=== PATIENT | female | born 1990 | race Caucasian/White ===

== ENCOUNTER 2016-11-07 04:02 | Inpatient (IN) | payer OTHER ==
[2016-11-07] MEDS ORDERED: Sodium Chloride 0.9% 1,000 ML IV ONE ×2 (04:18→04:19)
[2016-11-07 04:30] LABS: BASO # 0.1 K/uL (0.0-0.2); BASO % 1.3 % (0.0-2.0); EOS # 0.1 K/uL (0.0-0.7); EOS % 1.8 % (0.0-4.0); HEMATOCRIT 38.9 % (34.0-47.0); LYMPH # 1.4 K/uL (1.0-4.3); LYMPH % 23.8 % (20.0-40.0); MEAN CORPUSCULAR HEMOGLOBIN 29.3 pg (27.0-31.0); MEAN PLATELET VOLUME 7.1 fL (7.2-11.7); MONO # 0.2 K/uL (0.0-0.8); MONO % 4.1 % (0.0-10.0); RED CELL DISTRIBUTION WIDTH 14.6 % (11.5-14.5); WHITE BLOOD COUNT 5.7 K/uL (4.8-10.8)
[2016-11-07 04:33] LABS: MEAN CELL VOLUME 94.5 fL (81.0-99.0)
[2016-11-07 04:35] LABS: CHLORIDE 103 mmol/L (98-107)
[2016-11-07] MEDS ORDERED: Sodium Chloride 0.9% 2,000 ML ONE (04:35)
[2016-11-07 04:36] LABS: POTASSIUM 3.4 mmol/L (3.6-5.2); SODIUM 138 mmol/L (132-148)
[2016-11-07 04:38] LABS: ALB/GLOB RATIO 1.3 (1.0-2.1); ALKALINE PHOSPHATASE 145 U/L (38-126); AST/SGOT 63 U/L (14-36); BILIRUBIN,TOTAL 0.7 mg/dL (0.2-1.3); BLOOD UREA NITROGEN 9 mg/dL (7-17); GFR AFRICAN-AMERICAN > 60; TOTAL PROTEIN 7.1 g/dL (6.3-8.3)
[2016-11-07 04:39] LABS: ALT/SGPT 72 U/L (9-52)
[2016-11-07 04:40] LABS: CARBON DIOXIDE 7 mmol/L (22-30)
[2016-11-07 04:43] LABS: GLUCOSE,RANDOM 458 mg/dL (65-105)
[2016-11-07 04:49] LABS: VENOUS BLOOD GAS BASE EXCESS -18.2 mmol/L (0.0-2.0); VENOUS BLOOD GAS PCO2 21 mmHg (40-60); VENOUS BLOOD PH 7.19 (7.32-7.43)
[2016-11-07] MEDS ORDERED: Insulin Human Regular 100 UNIT in Sodium Chloride 0.9% 99 ML IV SCH ×2 (05:30→10:30)
[2016-11-07] MEDS ORDERED: Potassium Chloride 20 MEQ in Dextrose 5%/0.45% NS 1,000 ML IV SCH (06:30)
--- NOTE | 2016-11-07 06:43 | C.PDOC ---
History Of Present Illness Patient is a 26 year old female who presents to the ER with a complaint of an elevated blood sugar level. Patient was out today and noticed her sugar was over 500; she took 20 units of her humalog at the time but sugar was still high. Patient tried 5 more units subcutaneously. Patient reports currently feeling tired and weak. Denies nausea, vomiting, fever, cough or abdominal pain. Chief Complaint (Nursing): High Blood Sugar History Per: Patient History/Exam Limitations: no limitations Onset/Duration Of Symptoms: Hrs Current Symptoms Are (Timing): Still Present Current Diabetic Medications: Other (Humalog) Associated Infectious Symptoms: Other (Weakness). denies: Cough, Nausea, Vomiting Treatment Prior To Provider Evaluation: Other (Humalog) Response To Treatment: No Response Recent travel outside of the [place]: No Past Medical History Reviewed: Historical Data, Nursing Documentation, Vital Signs Vital Signs: Last Vital Signs Temp 97.6 F 11/07/16 04:05 Pulse 107 H 11/07/16 06:25 Resp 15 11/07/16 06:25 BP 118/78 11/07/16 06:25 Pulse Ox 100 11/07/16 06:51 - Medical History PMH: Diabetes (Type 1) Surgical History: Family History: States: Unknown Family Hx - Social History Hx Tobacco Use: Yes Hx Alcohol Use: Yes Hx Substance Use: No - Immunization History Hx Tetanus Toxoid Vaccination: Yes Hx Influenza Vaccination: No Hx Pneumococcal Vaccination: No Review Of Systems Constitutional: Positive for: Weakness, Other (Lethargic). Negative for: Fever Cardiovascular: Positive for: Chest Pain. Negative for: Palpitations Respiratory: Negative for: Cough, Shortness of Breath Gastrointestinal: Negative for: Nausea, Vomiting, Abdominal Pain Genitourinary: Negative for: Dysuria, Incontinence Neurological: Negative for: Numbness, Dizziness Physical Exam - Physical Exam Appears: Non-toxic, No Acute Distress Skin: Normal Color, Warm, Dry Head: Atraumatic, Normacephalic Oral Mucosa: Moist Chest: Symmetrical, No Tenderness Cardiovascular: Rhythm Regular, No Murmur Respiratory: Normal Breath Sounds, No Rales, No Rhonchi, No Wheezing Gastrointestinal/Abdominal: Soft, No Tenderness Neurological/Psych: Oriented x3, Normal Speech, Normal Cognition ED Course And Treatment - Laboratory Results Result Diagrams: 11/07/16 06:42 11/07/16 04:25 O2 Sat by Pulse Oximetry: 100 Progress Note: Pepcid, IV fluids, zofran and potassium administered. Discussed case with software test developer who agreed to admit patient to ICU. Critical Care Time - Critical Care Note Total Time (in mins): 30 Documented critical care: time excludes all time spent performing seperately billable procedures. Disposition - Disposition Disposition Time: 18:10 Condition: GUARDED - Clinical Impression Clinical Impression: DKA (diabetic ketoacidoses) - Scribe Statement The provider has reviewed the documentation as recorded by the Scribnatanael Pacheco All medical record entries made by the Scribe were at my direction and personally dictated by me. I have reviewed the chart and agree that the record accurately reflects my personal performance of the history, physical exam, medical decision making, and the department course for this patient. I have also personally directed, reviewed, and agree with the discharge instructions and disposition.
[2016-11-07 06:45] LABS: HEMATOCRIT 32.7 % (34.0-47.0); MEAN CELL VOLUME 92.1 fL (81.0-99.0); MEAN CORPUSCULAR HEMOGLOBIN 29.4 pg (27.0-31.0); MEAN CORPUSCULAR HGB CONC 31.9 g/dL (33.0-37.0); MEAN PLATELET VOLUME 7.1 fL (7.2-11.7); RED CELL DISTRIBUTION WIDTH 14.7 % (11.5-14.5); WHITE BLOOD COUNT 6.6 K/uL (4.8-10.8)
[2016-11-07 06:55] LABS: VENOUS BLOOD GAS BASE EXCESS -13.2 mmol/L (0.0-2.0); VENOUS BLOOD GAS PCO2 24 mmHg (40-60); VENOUS BLOOD PH 7.29 (7.32-7.43)
[2016-11-07 06:57] LABS: CHLORIDE 109 mmol/L (98-107); SODIUM 138 mmol/L (132-148)
[2016-11-07 06:58] LABS: POTASSIUM 3.7 mmol/L (3.6-5.2)
[2016-11-07 06:59] LABS: GFR AFRICAN-AMERICAN > 60
[2016-11-07 07:00] LABS: ALB/GLOB RATIO 1.2 (1.0-2.1); ALKALINE PHOSPHATASE 104 U/L (38-126); ALT/SGPT 52 U/L (9-52); AST/SGOT 43 U/L (14-36); BILIRUBIN,TOTAL 0.5 mg/dL (0.2-1.3); BLOOD UREA NITROGEN 7 mg/dL (7-17); GLUCOSE,RANDOM 82 mg/dL (65-105); PHOSPHOROUS 2.3 mg/dL (2.5-4.5); TOTAL PROTEIN 5.6 g/dL (6.3-8.3)
[2016-11-07 07:01] LABS: ALCOHOL SERUM < 10 mg/dl (0-10); CALCIUM 7.7 mg/dl (8.6-10.4); MAGNESIUM 1.4 mg/dL (1.6-2.3)
[2016-11-07 07:06] LABS: CARBON DIOXIDE 10 mmol/L (22-30)
[2016-11-07 08:01] LABS: URINE BACTERIA RARE (<OCC); URINE BILIRUBIN NEGATIVE (NEGATIVE); URINE BLOOD NEGATIVE (NEGATIVE); URINE COLOR Straw (YELLOW); URINE GLUCOSE (UA) 3+ mg/dL (Normal); URINE KETONE 2+ mg/dL (NEGATIVE); URINE LEUKOCYTE ESTERASE NEG Leu/uL (Negative); URINE PROTEIN NEGATIVE (NEGATIVE); URINE UROBILINOGEN NORMAL mg/dL (0.2-1.0); WBC URINE 1 /hpf (0-5)
[2016-11-07 08:10] LABS: RBC URINE 8 /hpf (0-3)
--- NOTE | 2016-11-07 08:15 | CP.PCM.CON ---
History of Present Illness - History of Present Illness History of Present Illness: 26 F with h/o IDDM since age 3 yr as per the patient currently only taking humlog 15 units tidac, no long acting insulin mentions has never needed and does not have episodes of the DKA over many years. As per the patient she was fine till last night around 10:30 pm took 15 units of humlog after food, patient then went for alcohol drinks with friends around 1am and vomited the first drink she got only half finished. She didn't felt good and noticed her glucose was in 500s hence she took second dose of humlog 20units at about 2:30 am and felt to come to ER for sugar control. In ER patient was found to be in anion gap acidosis with hyperglycemia and stared on insulin drip for DKA. Patient at the time of eval was not tachypnic and in no distress well makeup and dressed for republican. Prior records form including jun 2016, she was in [place] [facility] for DKA and hemoglobin A1c 9.9 suggesting poor control of glucose which will go in accordance to not being on basal insulin. Patient's labs rechecked including VBG lactate, still AG present, HCO3 of 10, but glucose was 98mg/dl, lactate was 5.9. Patient c/o some cough mentions daughter was sick, was taking amoxicillin for last 2 days PMH as above PSH 2 c sections Allergies NKDA Med reviewed Family history no dm runs in family Social about 10 cig/day, rarely alcohol, denies illicit drug use LMP 2 months ago, UPG negative 1.5months back as per patient. Review of Systems - Review of Systems All systems: reviewed and no additional remarkable complaints except (HPI) Past Patient History - Infectious Disease Hx of Infectious Diseases: None - Past Medical History & Family History Past Medical History?: Yes - Past Social History Smoking Status: Light Smoker < 10 Cigarettes Daily Alcohol: Occasional Drugs: Denies Home Situation {Lives}: With Family - CARDIAC Hx Cardiac Disorders: No - PULMONARY Hx Respiratory Disorders: No - NEUROLOGICAL Hx Neurological Disorder: No - HEENT Hx HEENT Problems: No - RENAL Hx Chronic Kidney Disease: No - ENDOCRINE/METABOLIC Hx Endocrine Disorders: Yes Hx Diabetes Mellitus Type 1: Yes - HEMATOLOGICAL/ONCOLOGICAL Hx Blood Disorders: No - INTEGUMENTARY Hx Dermatological Problems: No - MUSCULOSKELETAL/RHEUMATOLOGICAL Hx Musculoskeletal Disorders: No - GASTROINTESTINAL Hx Gastrointestinal Disorders: No - GENITOURINARY/GYNECOLOGICAL Hx Genitourinary Disorders: No - PSYCHIATRIC Hx Substance Use: No - SURGICAL HISTORY Hx Surgeries: Yes Hx Section: Yes (x2) Other/Comment: rt thigh abcess I&D (2006) / insulin pump - ANESTHESIA Hx Anesthesia: Yes Hx Anesthesia Reactions: No Meds Allergies/Adverse Reactions: Allergies Allergy/AdvReac Type Severity Reaction Status Date / Time No Known Allergies Allergy Verified 11/07/16 04:11 - Medications Medications: Current Medications Insulin Human Regular 100 unit (/ Sodium Chloride) 100 mls @ 2 mls/hr IV .Q24H [facility] Last Admin: 11/07/16 05:48 Dose: 2 mls/hr Potassium Chloride 20 meq/ (Dextrose/Sodium Chloride) 1,010 mls @ 125 mls/hr IV .Q8H5M [facility] Last Admin: 11/07/16 07:08 Dose: 125 mls/hr Magnesium Sulfate/Dextrose (Magnesium Sulfate 1 Gm/100 Ml D5w) 1 gm in 100 mls @ 200 mls/hr IVPB Q30M [facility] Stop: 11/07/16 08:14 Physical Exam - Additional Findings Additional findings: * HEENT CA, mild erythema in the throat * Neck supple * CVS regular, no gallop or rub * PA soft, nt bs present * Ext no edema * Skin normal turgor * 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 Results - Vital Signs Recent Vital Signs: Last Vital Signs Temp 97.6 F 11/07/16 04:05 Pulse 107 H 11/07/16 06:25 Resp 15 11/07/16 06:25 BP 118/78 11/07/16 06:25 Pulse Ox 100 11/07/16 06:57 - Labs Result Diagrams: 11/07/16 06:42 11/07/16 06:43 Labs: Laboratory Results - last 24 hr 11/07/16 11/07/16 11/07/16 06:15 06:42 06:43 WBC 6.6 RBC 3.55 L Hgb 10.5 L Hct 32.7 L MCV 92.1 D MCH 29.4 MCHC 31.9 L RDW 14.7 H Plt Count 345 MPV 7.1 L pO2 VBG pH VBG pCO2 VBG HCO3 VBG Total CO2 VBG O2 Sat (Calc) VBG Base Excess VBG Potassium Glucose Lactate Crit Value Called To Crit Value Called By Crit Value Read Back Blood Gas Notified Time Sodium 138 Potassium 3.7 Chloride 109 H Carbon Dioxide 10 L* D Anion Gap 23 H BUN 7 Creatinine 0.5 L Est GFR ( Amer) > 60 Est GFR (Non-Af Amer) > 60 POC Glucose (mg/dL) 98 Random Glucose 82 Calcium 7.7 L Phosphorus 2.3 L Magnesium 1.4 L Total Bilirubin 0.5 AST 43 H D ALT 52 D Alkaline Phosphatase 104 Total Protein 5.6 L Albumin 3.1 L D Globulin 2.5 Albumin/Globulin Ratio 1.2 Venous Blood Potassium Alcohol, Quantitative < 10 11/07/16 06:51 WBC RBC Hgb Hct MCV MCH MCHC RDW Plt Count MPV pO2 46 VBG pH 7.29 L VBG pCO2 24 L VBG HCO3 14.0 VBG Total CO2 12.2 L VBG O2 Sat (Calc) 85.6 H VBG Base Excess -13.2 L VBG Potassium 3.7 Glucose 69 Lactate 5.9 H* Crit Value Called To Shola rn Crit Value Called By Sarah premises technician Crit Value Read Back Y Blood Gas Notified Time 655 Sodium 138.0 Potassium Chloride 113.0 H Carbon Dioxide Anion Gap BUN Creatinine Est GFR ( Amer) Est GFR (Non-Af Amer) POC Glucose (mg/dL) Random Glucose Calcium Phosphorus Magnesium Total Bilirubin AST ALT Alkaline Phosphatase Total Protein Albumin Globulin Albumin/Globulin Ratio Venous Blood Potassium 3.7 Alcohol, Quantitative Assessment & Plan - Assessment and Plan (Free Text) Assessment: * DKA and Lactic acidosis, later unclear source * Probably no compliance with type 1 dm treatment as patient is not on basal long acting insulin, in which case very difficult to manage type 1 dm * Tobacco abuse * Mild pharyngitis Plan: * Abd pelvis ct, to look for any source suspicious of lactic acidosis * UDS * Continue insulin drip with dextrose till AG clears * Supplement electrolytes * Patient will be counselled about DM care * See orders for detail
[2016-11-07] MEDS ORDERED: Iohexol 240 (50 ml) ONE (08:19)
[2016-11-07] MEDS: Magnesium Sulfate 1 gm in D5W 1 GM/100 ML BAG IVPB SCH ×2 (08:41→09:24)
[2016-11-07] MEDS ORDERED: Magnesium Sulfate 1 gm in D5W 2 GM/200 ML BAG IVPB ONE (08:42)
[2016-11-07] MEDS: Insulin Human Regular 100 UNIT in Sodium Chloride 0.9% 99 ML IV SCH ×3 (08:58→11:10)
[2016-11-07 09:53] LABS: CHLORIDE 106 mmol/L (98-107); POTASSIUM 3.9 mmol/L (3.6-5.2); SODIUM 135 mmol/L (132-148)
[2016-11-07 09:56] LABS: CARBON DIOXIDE 15 mmol/L (22-30); GFR AFRICAN-AMERICAN > 60
[2016-11-07 09:57] LABS: BLOOD UREA NITROGEN 6 mg/dL (7-17); CALCIUM 7.9 mg/dl (8.6-10.4); GLUCOSE,RANDOM 145 mg/dL (65-105)
--- NOTE | 2016-11-07 10:05 | US ---
HISTORY: transaminitis COMPARISON: None. TECHNIQUE: Grayscale imaging was performed. FINDINGS: LIVER: Measures 23.0 cm in length. Normal echogenicity of the liver parenchyma. No mass. No intrahepatic bile duct dilatation. GALLBLADDER: No gallstones, wall thickening or pericholecystic fluid. COMMON BILE DUCT: Measures 3.0 mm. No stones. No dilatation. PANCREAS: There is an apparent diffuse atrophy of the pancreas. No mass. No ductal dilatation. RIGHT KIDNEY: Measures 10.8 cm in length. Normal echogenicity. No calculus, mass, or hydronephrosis. AORTA: No aneurysmal dilatation. IVC: Unremarkable. OTHER FINDINGS: None . IMPRESSION: Hepatomegaly. No cholelithiasis or biliary dilatation.
[2016-11-07] MEDS ORDERED: Iodixanol 320 MG/ML 100 ML BOTTLE IV ONE (10:16)
[2016-11-07 10:33] VITALS: TEMP 98
--- NOTE | 2016-11-07 11:01 | RAD ---
HISTORY: Cough, DKA COMPARISON: No prior. TECHNIQUE: Chest PA and lateral FINDINGS: LUNGS: The lungs are well inflated and clear. PLEURA: No significant pleural effusion identified. No pneumothorax apparent. CARDIOVASCULAR: Normal. OSSEOUS STRUCTURES: No significant abnormalities. VISUALIZED UPPER ABDOMEN: Normal. OTHER FINDINGS: None. IMPRESSION: No active pulmonary disease.
--- NOTE | 2016-11-07 11:40 | CT ---
PROCEDURE: CT Abdomen and Pelvis with contrast HISTORY: transaminitis, lactic acidosis COMPARISON: None. TECHNIQUE: CT scan of the abdomen and pelvis was performed after intravenous administration of contrast. Oral contrast was administered. Coronal and sagittal reformatted images were obtained. Radiation dose: Total exam DLP = 225.32 mGy-cm. This CT exam was performed using one or more of the following dose reduction techniques: Automated exposure control, adjustment of the mA and/or kV according to patient size, and/or use of iterative reconstruction technique. FINDINGS: LOWER THORAX: The lung bases are clear. LIVER: The liver is markedly enlarged and measures 23 cm in craniocaudad dimension. There is homogeneous enhancement. No gross lesion or ductal dilatation. GALLBLADDER AND BILE DUCTS: There are no calcified gallstones. PANCREAS: The pancreas is normal in size and there is homogeneous enhancement without focal mass or ductal dilatation. SPLEEN: The spleen is normal in size and there is homogeneous enhancement without focal lesion. ADRENALS: Both adrenal glands are normal in size without discrete nodule. KIDNEYS AND URETERS: Both kidneys are normal in size and there is homogeneous enhancement without hydronephrosis or focal mass. VASCULATURE: Normal in appearance. No aortic aneurysm. BOWEL: The small bowel loops are normal in caliber. The colon is unremarkable. No evidence of bowel dilatation, wall thickening or obstruction. APPENDIX: Normal appendix. PERITONEUM: No free fluid. No free air. LYMPH NODES: No enlarged lymph nodes. BLADDER: Decompressed. REPRODUCTIVE: Unremarkable. BONES: No acute fracture. Within normal limits for the patient's age. OTHER FINDINGS: None. IMPRESSION: 1. Severe hepatomegaly. 2. No other acute abdominal or pelvic abnormality.
[2016-11-07 13:53] LABS: CHLORIDE 105 mmol/L (98-107); SODIUM 136 mmol/L (132-148)
[2016-11-07 13:54] LABS: POTASSIUM 3.4 mmol/L (3.6-5.2)
[2016-11-07 13:56] LABS: GFR AFRICAN-AMERICAN > 60
[2016-11-07 13:57] LABS: BLOOD UREA NITROGEN 5 mg/dL (7-17); CALCIUM 8.1 mg/dl (8.6-10.4); GLUCOSE,RANDOM 110 mg/dL (65-105)
[2016-11-07 14:08] LABS: CARBON DIOXIDE 11 mmol/L (22-30)
[2016-11-07 14:55] VITALS: BP 103/67; PULSE 100; RESP 27; O2SAT 99
--- NOTE | 2016-11-07 17:59 | CP.CCUPN ---
CCU Subjective - Physician Review Events Since Last Encounter (Free Text): 11/07/16 17:56 Patient has decided to leave against medical advice (AMA). I explained to her that this could be life threatening as her DKA has not completely resolved. She did not care, stated she understood what I was telling her, but was insistent on leaving and signed the document to leave AMA. 11/07/16 17:59 CCU Objective - Vital Signs / Intake & Output Vital Signs (Last 4 hours): Vital Signs Pulse Resp BP Pulse Ox 11/07/16 14:50 100 H 27 H 99 11/07/16 14:40 94 H 16 100 11/07/16 14:30 94 H 23 100 11/07/16 14:20 93 H 24 100 11/07/16 14:10 93 H 20 100 11/07/16 14:06 91 H 20 103/67 100 11/07/16 14:00 97 H 15 100 Intake and Output (Last 8hrs): Intake & Output 11/07/16 11/07/16 11/07/16 06:59 14:59 22:59 Intake Total 23 Balance 23 Intake: IV 23 Oral 0 - Patient Studies Lab Studies: Lab Studies 11/07/16 11/07/16 11/07/16 Range/Units 14:56 14:08 13:18 WBC (4.8-10.8) K/uL RBC (3.80-5.20) Mil/uL Hgb (11.0-16.0) g/dL Hct (34.0-47.0) % MCV (81.0-99.0) fL MCH (27.0-31.0) pg MCHC (33.0-37.0) g/dL RDW (11.5-14.5) % Plt Count (130-400) K/uL MPV (7.2-11.7) fL pO2 (30-55) mm/Hg VBG pH (7.32-7.43) VBG pCO2 (40-60) mmHg VBG HCO3 mmol/L VBG Total CO2 (22-28) mmol/L VBG O2 Sat (Calc) (40-65) % VBG Base Excess (0.0-2.0) mmol/L VBG Potassium (3.6-5.2) mmol/L Glucose (65-105) mg/dl Lactate (0.7-2.1) mmol/L Crit Value Called To Crit Value Called By Crit Value Read Back Blood Gas Notified Time Sodium 136 (132-148) mmol/L Potassium 3.4 L (3.6-5.2) mmol/L Chloride 105 (98-107) mmol/L Carbon Dioxide 11 L* D (22-30) mmol/L Anion Gap 23 H (10-20) BUN 5 L (7-17) mg/dL Creatinine 0.5 L (0.7-1.2) MG/DL Est GFR ( Amer) > 60 Est GFR (Non-Af Amer) > 60 POC Glucose (mg/dL) 159 H 83 (65-110) mg/dL Random Glucose 110 H (65-105) mg/dL Calcium 8.1 L (8.6-10.4) mg/dl Phosphorus (2.5-4.5) mg/dL Magnesium (1.6-2.3) mg/dL Total Bilirubin (0.2-1.3) mg/dL AST (14-36) U/L ALT (9-52) U/L Alkaline Phosphatase (38-126) U/L Total Protein (6.3-8.3) g/dL Albumin (3.5-5.0) g/dL Globulin (2.2-3.9) gm/dL Albumin/Globulin Ratio (1.0-2.1) Venous Blood Potassium (3.6-5.2) mmol/L Urine Color (YELLOW) Urine Clarity (Clear) Urine pH (5.0-8.0) Ur Specific [place] (1.003-1.030) Urine Protein (NEGATIVE) mg/dL Urine Glucose (UA) (Normal) mg/dL Urine Ketones (NEGATIVE) mg/dL Urine Blood (NEGATIVE) Urine Nitrate (NEGATIVE) Urine Bilirubin (NEGATIVE) Urine Urobilinogen (0.2-1.0) mg/dL Ur Leukocyte Esterase (Negative) Ashly/uL Urine WBC (Auto) (0-5) /hpf Urine RBC (Auto) (0-3) /hpf Ur Squamous Epith Cells (0-5) /hpf Urine Bacteria (<OCC) Urine Opiates Screen (NEGATIVE) Urine Methadone Screen (NEGATIVE) Ur Barbiturates Screen (NEGATIVE) Ur Phencyclidine Scrn (NEGATIVE) Ur Amphetamines Screen (NEGATIVE) U Benzodiazepines Scrn (NEGATIVE) U Oth Cocaine Metabols (NEGATIVE) U Cannabinoids Screen (NEGATIVE) Alcohol, Quantitative (0-10) mg/dl 11/07/16 11/07/16 11/07/16 Range/Units 13:11 12:00 11:08 WBC (4.8-10.8) K/uL RBC (3.80-5.20) Mil/uL Hgb (11.0-16.0) g/dL Hct (34.0-47.0) % MCV (81.0-99.0) fL MCH (27.0-31.0) pg MCHC (33.0-37.0) g/dL RDW (11.5-14.5) % Plt Count (130-400) K/uL MPV (7.2-11.7) fL pO2 (30-55) mm/Hg VBG pH (7.32-7.43) VBG pCO2 (40-60) mmHg VBG HCO3 mmol/L VBG Total CO2 (22-28) mmol/L VBG O2 Sat (Calc) (40-65) % VBG Base Excess (0.0-2.0) mmol/L VBG Potassium (3.6-5.2) mmol/L Glucose (65-105) mg/dl Lactate (0.7-2.1) mmol/L Crit Value Called To Crit Value Called By Crit Value Read Back Blood Gas Notified Time Sodium (132-148) mmol/L Potassium (3.6-5.2) mmol/L Chloride (98-107) mmol/L Carbon Dioxide (22-30) mmol/L Anion Gap (10-20) BUN (7-17) mg/dL Creatinine (0.7-1.2) MG/DL Est GFR ( Amer) Est GFR (Non-Af Amer) POC Glucose (mg/dL) 121 H 249 H 365 H (65-110) mg/dL Random Glucose (65-105) mg/dL Calcium (8.6-10.4) mg/dl Phosphorus (2.5-4.5) mg/dL Magnesium (1.6-2.3) mg/dL Total Bilirubin (0.2-1.3) mg/dL AST (14-36) U/L ALT (9-52) U/L Alkaline Phosphatase (38-126) U/L Total Protein (6.3-8.3) g/dL Albumin (3.5-5.0) g/dL Globulin (2.2-3.9) gm/dL Albumin/Globulin Ratio (1.0-2.1) Venous Blood Potassium (3.6-5.2) mmol/L Urine Color (YELLOW) Urine Clarity (Clear) Urine pH (5.0-8.0) Ur Specific [place] (1.003-1.030) Urine Protein (NEGATIVE) mg/dL Urine Glucose (UA) (Normal) mg/dL Urine Ketones (NEGATIVE) mg/dL Urine Blood (NEGATIVE) Urine Nitrate (NEGATIVE) Urine Bilirubin (NEGATIVE) Urine Urobilinogen (0.2-1.0) mg/dL Ur Leukocyte Esterase (Negative) Ashly/uL Urine WBC (Auto) (0-5) /hpf Urine RBC (Auto) (0-3) /hpf Ur Squamous Epith Cells (0-5) /hpf Urine Bacteria (<OCC) Urine Opiates Screen (NEGATIVE) Urine Methadone Screen (NEGATIVE) Ur Barbiturates Screen (NEGATIVE) Ur Phencyclidine Scrn (NEGATIVE) Ur Amphetamines Screen (NEGATIVE) U Benzodiazepines Scrn (NEGATIVE) U Oth Cocaine Metabols (NEGATIVE) U Cannabinoids Screen (NEGATIVE) Alcohol, Quantitative (0-10) mg/dl 11/07/16 11/07/16 11/07/16 Range/Units 10:03 09:23 08:56 WBC (4.8-10.8) K/uL RBC (3.80-5.20) Mil/uL Hgb (11.0-16.0) g/dL Hct (34.0-47.0) % MCV (81.0-99.0) fL MCH (27.0-31.0) pg MCHC (33.0-37.0) g/dL RDW (11.5-14.5) % Plt Count (130-400) K/uL MPV (7.2-11.7) fL pO2 (30-55) mm/Hg VBG pH (7.32-7.43) VBG pCO2 (40-60) mmHg VBG HCO3 mmol/L VBG Total CO2 (22-28) mmol/L VBG O2 Sat (Calc) (40-65) % VBG Base Excess (0.0-2.0) mmol/L VBG Potassium (3.6-5.2) mmol/L Glucose (65-105) mg/dl Lactate (0.7-2.1) mmol/L Crit Value Called To Crit Value Called By Crit Value Read Back Blood Gas Notified Time Sodium 135 (132-148) mmol/L Potassium 3.9 (3.6-5.2) mmol/L Chloride 106 (98-107) mmol/L Carbon Dioxide 15 L (22-30) mmol/L Anion Gap 18 (10-20) BUN 6 L (7-17) mg/dL Creatinine 0.4 L (0.7-1.2) MG/DL Est GFR ( Amer) > 60 Est GFR (Non-Af Amer) > 60 POC Glucose (mg/dL) 293 H 122 H (65-110) mg/dL Random Glucose 145 H (65-105) mg/dL Calcium 7.9 L (8.6-10.4) mg/dl Phosphorus (2.5-4.5) mg/dL Magnesium (1.6-2.3) mg/dL Total Bilirubin (0.2-1.3) mg/dL AST (14-36) U/L ALT (9-52) U/L Alkaline Phosphatase (38-126) U/L Total Protein (6.3-8.3) g/dL Albumin (3.5-5.0) g/dL Globulin (2.2-3.9) gm/dL Albumin/Globulin Ratio (1.0-2.1) Venous Blood Potassium (3.6-5.2) mmol/L Urine Color (YELLOW) Urine Clarity (Clear) Urine pH (5.0-8.0) Ur Specific [place] (1.003-1.030) Urine Protein (NEGATIVE) mg/dL Urine Glucose (UA) (Normal) mg/dL Urine Ketones (NEGATIVE) mg/dL Urine Blood (NEGATIVE) Urine Nitrate (NEGATIVE) Urine Bilirubin (NEGATIVE) Urine Urobilinogen (0.2-1.0) mg/dL Ur Leukocyte Esterase (Negative) Ashly/uL Urine WBC (Auto) (0-5) /hpf Urine RBC (Auto) (0-3) /hpf Ur Squamous Epith Cells (0-5) /hpf Urine Bacteria (<OCC) Urine Opiates Screen (NEGATIVE) Urine Methadone Screen (NEGATIVE) Ur Barbiturates Screen (NEGATIVE) Ur Phencyclidine Scrn (NEGATIVE) Ur Amphetamines Screen (NEGATIVE) U Benzodiazepines Scrn (NEGATIVE) U Oth Cocaine Metabols (NEGATIVE) U Cannabinoids Screen (NEGATIVE) Alcohol, Quantitative (0-10) mg/dl 11/07/16 11/07/16 11/07/16 Range/Units 07:42 07:42 06:51 WBC (4.8-10.8) K/uL RBC (3.80-5.20) Mil/uL Hgb (11.0-16.0) g/dL Hct (34.0-47.0) % MCV (81.0-99.0) fL MCH (27.0-31.0) pg MCHC (33.0-37.0) g/dL RDW (11.5-14.5) % Plt Count (130-400) K/uL MPV (7.2-11.7) fL pO2 46 (30-55) mm/Hg VBG pH 7.29 L (7.32-7.43) VBG pCO2 24 L (40-60) mmHg VBG HCO3 14.0 mmol/L VBG Total CO2 12.2 L (22-28) mmol/L VBG O2 Sat (Calc) 85.6 H (40-65) % VBG Base Excess -13.2 L (0.0-2.0) mmol/L VBG Potassium 3.7 (3.6-5.2) mmol/L Glucose 69 (65-105) mg/dl Lactate 5.9 H* (0.7-2.1) mmol/L Crit Value Called To Shola rn Crit Value Called By Sarah medical laboratory technologist Crit Value Read Back Y Blood Gas Notified Time 655 Sodium 138.0 (132-148) mmol/L Potassium (3.6-5.2) mmol/L Chloride 113.0 H (98-107) mmol/L Carbon Dioxide (22-30) mmol/L Anion Gap (10-20) BUN (7-17) mg/dL Creatinine (0.7-1.2) MG/DL Est GFR ( Amer) Est GFR (Non-Af Amer) POC Glucose (mg/dL) (65-110) mg/dL Random Glucose (65-105) mg/dL Calcium (8.6-10.4) mg/dl Phosphorus (2.5-4.5) mg/dL Magnesium (1.6-2.3) mg/dL Total Bilirubin (0.2-1.3) mg/dL AST (14-36) U/L ALT (9-52) U/L Alkaline Phosphatase (38-126) U/L Total Protein (6.3-8.3) g/dL Albumin (3.5-5.0) g/dL Globulin (2.2-3.9) gm/dL Albumin/Globulin Ratio (1.0-2.1) Venous Blood Potassium 3.7 (3.6-5.2) mmol/L Urine Color Straw (YELLOW) Urine Clarity Clear (Clear) Urine pH 5.0 (5.0-8.0) Ur Specific [place] 1.022 (1.003-1.030) Urine Protein Negative (NEGATIVE) mg/dL Urine Glucose (UA) 3+ H (Normal) mg/dL Urine Ketones 2+ H (NEGATIVE) mg/dL Urine Blood Negative (NEGATIVE) Urine Nitrate Negative (NEGATIVE) Urine Bilirubin Negative (NEGATIVE) Urine Urobilinogen Normal (0.2-1.0) mg/dL Ur Leukocyte Esterase Neg (Negative) Ashly/uL Urine WBC (Auto) 1 (0-5) /hpf Urine RBC (Auto) 8 H (0-3) /hpf Ur Squamous Epith Cells 1 (0-5) /hpf Urine Bacteria Rare (<OCC) Urine Opiates Screen Negative (NEGATIVE) Urine Methadone Screen Negative (NEGATIVE) Ur Barbiturates Screen Negative (NEGATIVE) Ur Phencyclidine Scrn Negative (NEGATIVE) Ur Amphetamines Screen Negative (NEGATIVE) U Benzodiazepines Scrn Negative (NEGATIVE) U Oth Cocaine Metabols Negative (NEGATIVE) U Cannabinoids Screen Negative (NEGATIVE) Alcohol, Quantitative (0-10) mg/dl 11/07/16 11/07/16 11/07/16 Range/Units 06:43 06:42 06:15 WBC 6.6 (4.8-10.8) K/uL RBC 3.55 L (3.80-5.20) Mil/uL Hgb 10.5 L (11.0-16.0) g/dL Hct 32.7 L (34.0-47.0) % MCV 92.1 D (81.0-99.0) fL MCH 29.4 (27.0-31.0) pg MCHC 31.9 L (33.0-37.0) g/dL RDW 14.7 H (11.5-14.5) % Plt Count 345 (130-400) K/uL MPV 7.1 L (7.2-11.7) fL pO2 (30-55) mm/Hg VBG pH (7.32-7.43) VBG pCO2 (40-60) mmHg VBG HCO3 mmol/L VBG Total CO2 (22-28) mmol/L VBG O2 Sat (Calc) (40-65) % VBG Base Excess (0.0-2.0) mmol/L VBG Potassium (3.6-5.2) mmol/L Glucose (65-105) mg/dl Lactate (0.7-2.1) mmol/L Crit Value Called To Crit Value Called By Crit Value Read Back Blood Gas Notified Time Sodium 138 (132-148) mmol/L Potassium 3.7 (3.6-5.2) mmol/L Chloride 109 H (98-107) mmol/L Carbon Dioxide 10 L* D (22-30) mmol/L Anion Gap 23 H (10-20) BUN 7 (7-17) mg/dL Creatinine 0.5 L (0.7-1.2) MG/DL Est GFR ( Amer) > 60 Est GFR (Non-Af Amer) > 60 POC Glucose (mg/dL) 98 (65-110) mg/dL Random Glucose 82 (65-105) mg/dL Calcium 7.7 L (8.6-10.4) mg/dl Phosphorus 2.3 L (2.5-4.5) mg/dL Magnesium 1.4 L (1.6-2.3) mg/dL Total Bilirubin 0.5 (0.2-1.3) mg/dL AST 43 H D (14-36) U/L ALT 52 D (9-52) U/L Alkaline Phosphatase 104 (38-126) U/L Total Protein 5.6 L (6.3-8.3) g/dL Albumin 3.1 L D (3.5-5.0) g/dL Globulin 2.5 (2.2-3.9) gm/dL Albumin/Globulin Ratio 1.2 (1.0-2.1) Venous Blood Potassium (3.6-5.2) mmol/L Urine Color (YELLOW) Urine Clarity (Clear) Urine pH (5.0-8.0) Ur Specific [place] (1.003-1.030) Urine Protein (NEGATIVE) mg/dL Urine Glucose (UA) (Normal) mg/dL Urine Ketones (NEGATIVE) mg/dL Urine Blood (NEGATIVE) Urine Nitrate (NEGATIVE) Urine Bilirubin (NEGATIVE) Urine Urobilinogen (0.2-1.0) mg/dL Ur Leukocyte Esterase (Negative) Ashly/uL Urine WBC (Auto) (0-5) /hpf Urine RBC (Auto) (0-3) /hpf Ur Squamous Epith Cells (0-5) /hpf Urine Bacteria (<OCC) Urine Opiates Screen (NEGATIVE) Urine Methadone Screen (NEGATIVE) Ur Barbiturates Screen (NEGATIVE) Ur Phencyclidine Scrn (NEGATIVE) Ur Amphetamines Screen (NEGATIVE) U Benzodiazepines Scrn (NEGATIVE) U Oth Cocaine Metabols (NEGATIVE) U Cannabinoids Screen (NEGATIVE) Alcohol, Quantitative < 10 (0-10) mg/dl Laboratory Results - last 24 hr 11/07/16 11/07/16 11/07/16 06:15 06:42 06:43 WBC 6.6 RBC 3.55 L Hgb 10.5 L Hct 32.7 L MCV 92.1 D MCH 29.4 MCHC 31.9 L RDW 14.7 H Plt Count 345 MPV 7.1 L pO2 VBG pH VBG pCO2 VBG HCO3 VBG Total CO2 VBG O2 Sat (Calc) VBG Base Excess VBG Potassium Glucose Lactate Crit Value Called To Crit Value Called By Crit Value Read Back Blood Gas Notified Time Sodium 138 Potassium 3.7 Chloride 109 H Carbon Dioxide 10 L* D Anion Gap 23 H BUN 7 Creatinine 0.5 L Est GFR ( Amer) > 60 Est GFR (Non-Af Amer) > 60 POC Glucose (mg/dL) 98 Random Glucose 82 Calcium 7.7 L Phosphorus 2.3 L Magnesium 1.4 L Total Bilirubin 0.5 AST 43 H D ALT 52 D Alkaline Phosphatase 104 Total Protein 5.6 L Albumin 3.1 L D Globulin 2.5 Albumin/Globulin Ratio 1.2 Venous Blood Potassium Urine Color Urine Clarity Urine pH Ur Specific [place] Urine Protein Urine Glucose (UA) Urine Ketones Urine Blood Urine Nitrate Urine Bilirubin Urine Urobilinogen Ur Leukocyte Esterase Urine WBC (Auto) Urine RBC (Auto) Ur Squamous Epith Cells Urine Bacteria Urine Opiates Screen Urine Methadone Screen Ur Barbiturates Screen Ur Phencyclidine Scrn Ur Amphetamines Screen U Benzodiazepines Scrn U Oth Cocaine Metabols U Cannabinoids Screen Alcohol, Quantitative < 10 11/07/16 11/07/16 11/07/16 06:51 07:42 07:42 WBC RBC Hgb Hct MCV MCH MCHC RDW Plt Count MPV pO2 46 VBG pH 7.29 L VBG pCO2 24 L VBG HCO3 14.0 VBG Total CO2 12.2 L VBG O2 Sat (Calc) 85.6 H VBG Base Excess -13.2 L VBG Potassium 3.7 Glucose 69 Lactate 5.9 H* Crit Value Called To Shola rn Crit Value Called By Sarah medical laboratory technologist Crit Value Read Back Y Blood Gas Notified Time 655 Sodium 138.0 Potassium Chloride 113.0 H Carbon Dioxide Anion Gap BUN Creatinine Est GFR ( Amer) Est GFR (Non-Af Amer) POC Glucose (mg/dL) Random Glucose Calcium Phosphorus Magnesium Total Bilirubin AST ALT Alkaline Phosphatase Total Protein Albumin Globulin Albumin/Globulin Ratio Venous Blood Potassium 3.7 Urine Color Straw Urine Clarity Clear Urine pH 5.0 Ur Specific [place] 1.022 Urine Protein Negative Urine Glucose (UA) 3+ H Urine Ketones 2+ H Urine Blood Negative Urine Nitrate Negative Urine Bilirubin Negative Urine Urobilinogen Normal Ur Leukocyte Esterase Neg Urine WBC (Auto) 1 Urine RBC (Auto) 8 H Ur Squamous Epith Cells 1 Urine Bacteria Rare Urine Opiates Screen Negative Urine Methadone Screen Negative Ur Barbiturates Screen Negative Ur Phencyclidine Scrn Negative Ur Amphetamines Screen Negative U Benzodiazepines Scrn Negative U Oth Cocaine Metabols Negative U Cannabinoids Screen Negative Alcohol, Quantitative 11/07/16 11/07/16 11/07/16 08:56 09:23 10:03 WBC RBC Hgb Hct MCV MCH MCHC RDW Plt Count MPV pO2 VBG pH VBG pCO2 VBG HCO3 VBG Total CO2 VBG O2 Sat (Calc) VBG Base Excess VBG Potassium Glucose Lactate Crit Value Called To Crit Value Called By Crit Value Read Back Blood Gas Notified Time Sodium 135 Potassium 3.9 Chloride 106 Carbon Dioxide 15 L Anion Gap 18 BUN 6 L Creatinine 0.4 L Est GFR ( Amer) > 60 Est GFR (Non-Af Amer) > 60 POC Glucose (mg/dL) 122 H 293 H Random Glucose 145 H Calcium 7.9 L Phosphorus Magnesium Total Bilirubin AST ALT Alkaline Phosphatase Total Protein Albumin Globulin Albumin/Globulin Ratio Venous Blood Potassium Urine Color Urine Clarity Urine pH Ur Specific [place] Urine Protein Urine Glucose (UA) Urine Ketones Urine Blood Urine Nitrate Urine Bilirubin Urine Urobilinogen Ur Leukocyte Esterase Urine WBC (Auto) Urine RBC (Auto) Ur Squamous Epith Cells Urine Bacteria Urine Opiates Screen Urine Methadone Screen Ur Barbiturates Screen Ur Phencyclidine Scrn Ur Amphetamines Screen U Benzodiazepines Scrn U Oth Cocaine Metabols U Cannabinoids Screen Alcohol, Quantitative 11/07/16 11/07/16 11/07/16 11:08 12:00 13:11 WBC RBC Hgb Hct MCV MCH MCHC RDW Plt Count MPV pO2 VBG pH VBG pCO2 VBG HCO3 VBG Total CO2 VBG O2 Sat (Calc) VBG Base Excess VBG Potassium Glucose Lactate Crit Value Called To Crit Value Called By Crit Value Read Back Blood Gas Notified Time Sodium Potassium Chloride Carbon Dioxide Anion Gap BUN Creatinine Est GFR ( Amer) Est GFR (Non-Af Amer) POC Glucose (mg/dL) 365 H 249 H 121 H Random Glucose Calcium Phosphorus Magnesium Total Bilirubin AST ALT Alkaline Phosphatase Total Protein Albumin Globulin Albumin/Globulin Ratio Venous Blood Potassium Urine Color Urine Clarity Urine pH Ur Specific [place] Urine Protein Urine Glucose (UA) Urine Ketones Urine Blood Urine Nitrate Urine Bilirubin Urine Urobilinogen Ur Leukocyte Esterase Urine WBC (Auto) Urine RBC (Auto) Ur Squamous Epith Cells Urine Bacteria Urine Opiates Screen Urine Methadone Screen Ur Barbiturates Screen Ur Phencyclidine Scrn Ur Amphetamines Screen U Benzodiazepines Scrn U Oth Cocaine Metabols U Cannabinoids Screen Alcohol, Quantitative 11/07/16 11/07/16 11/07/16 13:18 14:08 14:56 WBC RBC Hgb Hct MCV MCH MCHC RDW Plt Count MPV pO2 VBG pH VBG pCO2 VBG HCO3 VBG Total CO2 VBG O2 Sat (Calc) VBG Base Excess VBG Potassium Glucose Lactate Crit Value Called To Crit Value Called By Crit Value Read Back Blood Gas Notified Time Sodium 136 Potassium 3.4 L Chloride 105 Carbon Dioxide 11 L* D Anion Gap 23 H BUN 5 L Creatinine 0.5 L Est GFR ( Amer) > 60 Est GFR (Non-Af Amer) > 60 POC Glucose (mg/dL) 83 159 H Random Glucose 110 H Calcium 8.1 L Phosphorus Magnesium Total Bilirubin AST ALT Alkaline Phosphatase Total Protein Albumin Globulin Albumin/Globulin Ratio Venous Blood Potassium Urine Color Urine Clarity Urine pH Ur Specific [place] Urine Protein Urine Glucose (UA) Urine Ketones Urine Blood Urine Nitrate Urine Bilirubin Urine Urobilinogen Ur Leukocyte Esterase Urine WBC (Auto) Urine RBC (Auto) Ur Squamous Epith Cells Urine Bacteria Urine Opiates Screen Urine Methadone Screen Ur Barbiturates Screen Ur Phencyclidine Scrn Ur Amphetamines Screen U Benzodiazepines Scrn U Oth Cocaine Metabols U Cannabinoids Screen Alcohol, Quantitative Fingerstick Blood Sugar Results: 293
--- NOTE | 2016-11-08 16:09 | DS ---
The patient is a 26-year-old female. Left against medical advice on 11/07/2016. ____ tried to e xplain to the patient but still she decided to against medical advice. For more details, see kym linton P of the same date. Kelly Roldan MD cc: [id number] TT: 11/08/2016 16:08:28 sn
--- NOTE | 2016-11-09 08:08 | HP ---
CHIEF COMPLAINT: Sugar level is high, feeling fatigue and tired. HISTORY OF PRESENT ILLNESS: The patient is a 26-year-old female with past medical history of insulin -dependent diabetes mellitus, came to the Emergency Room with the complaint of elevated blood sugar kings bowles. The patient was out today and noticed that sugar was over 500. She took 20 units of her Humal og at the time, but sugar was still high. The patient tried 5 more units subcutaneously. The patien t reports currently feeling tired and weak. Denies nausea, vomiting, or diarrhea. No hematuria or h ematochezia. I saw the patient on the unit. She was sleepy, arousable, moving all 4 extremities. PAST MEDICAL HISTORY: Diabetes mellitus type 1, insulin-requiring, history of section. FAMILY HISTORY: Unknown. HABITS: Tobacco yes, alcohol yes. Substance abuse no. HOME MEDICATIONS: Insulin. REVIEW OF SYSTEMS: The patient was seen and examined on the bedside on the unit, feeling fatigued an d lethargic. No fever. No chest pain, no palpitation, no coughing, or shortness of breath. No naus ea, vomiting, abdominal pain. No dysuria or incontinence. Negative for numbness and dizziness. PHYSICAL EXAMINATION: VITAL SIGNS: Temperature 97.6, pulse 107, respiratory rate 15, blood pressure 118/78. HEENT: Head normocephalic, atraumatic. Eyes: PERRLA. Extraocular muscles intact. Conjunctivae are clear. Nose patent. Mucous membranes moist. NECK: Supple. No carotid bruit, JVD, or thyromegaly. CHEST: Bilaterally symmetrical. HEART: S1, S2 positive. LUNGS: Clear to auscultation. ABDOMEN: Soft. Bowel sounds present. No organomegaly. EXTREMITIES: No edema, no cyanosis. NEUROLOGIC: The patient is sleepy, moving all 4 extremities. No focal deficit, easily arousable. LABORATORY DATA: White blood cells 6.6, hemoglobin 10.5, hematocrit 32.7, platelets 345. Sodium 13_ ___, potassium 3.4, BUN 9, creatinine 0.6, glucose ____. ASSESSMENT AND PLAN: The patient is a 26-year-old lady with anemia, hypokalemia, hyperglycemia, diab etic ketoacidosis, insulin-dependent diabetes mellitus, not ____ controlled. CAT scan of the abdomen and pelvis done - severe hepatomegaly. No other acute abdominal or pelvic ab normality. Chest x-ray and abdominal ultrasound reviewed by va - has hepatomegaly. No cholelithiasis or biliary dilatation. The patient was seen by Dr. Louis Hoover, wire repairer of the day. The patient has insulin-dependent diabetes mellitus type 1 since age 3 year. ____ was 2 months ago. Urine for test is negative. Had lactic acidosis, history of tobacco use, mild pharyngitis . The patient admitted to the unit. Insulin drip was started. Electrolytes were supplemented. Plan was to call a telehealth nurse educator and an endocrinology consult, but the patient decided to GO [facility]. Length of time discussion done by ____. First, ____ explained to the pa justin that you can , you can get again diabetic ketoacidosis, but she decided to LEAVE AGAINST MED ICAL ADVISE. She left, but she was informed to come to the hospital ____, otherwise follow up with y our primary care physician. Kelly Roldan MD cc: [id number] TT: 11/08/2016 09:47:38 jn
== END 2016-11-07 15:54 | disposition left against medical advice (07) | DRG 295 ==
LOC: C.ER 04:02 → C.9E 05:17 → C.9I 11:16
PROVIDERS: ADMIT Internal Medicine; ATTEND Internal Medicine
DX: E10.10 Type 1 diabetes mellitus with ketoacidosis without coma (principal); Z79.4 Long term (current) use of insulin; Z72.0 Tobacco use

== ENCOUNTER 2018-04-25 19:58 | Emergency (ER) | payer OTHER ==
[2018-04-25 19:58] VITALS: BMI 23.9
[2018-04-25 20:16] VITALS: TEMP 97.4
[2018-04-25] MEDS ORDERED: Sodium Chloride 0.9% 1,000 ML IV ONE (20:30)
--- NOTE | 2018-04-25 20:41 | C.PDOC ---
History Of Present Illness 27 year old female presents to the ED c/o abdominal pain. Patient states her blood sugar has been high for the past couple of days. Patient reports today she had some ketones in her urine. Patient states she has been taking NyQuil for the last couple fo days. Patient denies fever, chills, nausea, vomit, diarrhea, back pain, rash, recent travel, sick contacts. Time Seen by Provider: 04/25/18 20:40 Chief Complaint (Nursing): Abdominal Pain History Per: Patient History/Exam Limitations: no limitations Onset/Duration Of Symptoms: Days Current Symptoms Are (Timing): Still Present Current Diabetic Medications: Insulin Associated Infectious Symptoms: Other (abdominal pain) Recent travel outside of the [place]: No Additional History Per: Patient Past Medical History Reviewed: Historical Data, Nursing Documentation, Vital Signs Vital Signs: Last Vital Signs Temp 97.4 F L 04/25/18 20:11 Pulse 102 H 04/25/18 20:11 Resp 20 04/25/18 20:11 BP 125/84 04/25/18 20:11 Pulse Ox 100 04/25/18 20:11 - Medical History PMH: Diabetes (type 1) Denies: Anxiety, Bipolar Disorder, Bronchitis, Depression, HIV, Paranoia, Post Traumatic Stress Disorder, Chronic Kidney Disease, Schizophrenia Surgical History: (x2) - [facility] Procedures INJECT/INFUSE ELECTROLYT (07/15/12) INJECT/INFUSE NEC (08/19/14) Family History: States: Unknown Family Hx, Hypertension - Social History Hx Tobacco Use: No Hx Alcohol Use: Yes Hx Substance Use: No - Immunization History Hx Tetanus Toxoid Vaccination: No Hx Influenza Vaccination: No Hx Pneumococcal Vaccination: No Review Of Systems Constitutional: Negative for: Fever, Chills Cardiovascular: Negative for: Chest Pain Respiratory: Negative for: Cough, Shortness of Breath Gastrointestinal: Positive for: Abdominal Pain. Negative for: Nausea, Vomiting, Diarrhea Skin: Negative for: Rash Neurological: Negative for: Weakness, Numbness, Headache, Dizziness Physical Exam - Physical Exam Appears: Non-toxic, No Acute Distress Skin: Warm, Dry Head: Normacephalic Eye(s): bilateral: Normal Inspection Oral Mucosa: Moist Neck: Supple Chest: Symmetrical Cardiovascular: Rhythm Regular Respiratory: No Rales, No Rhonchi, No Wheezing Gastrointestinal/Abdominal: Soft, No Tenderness, No Guarding, No Rebound Extremity: Bilateral: Atraumatic, Normal Color And Temperature, Normal ROM Neurological/Psych: Oriented x3, Normal Speech, Normal Cognition Gait: Steady ED Course And Treatment - Laboratory Results Result Diagrams: 04/25/18 20:39 04/25/18 20:39 O2 Sat by Pulse Oximetry: 100 (ON RA) Pulse Ox Interpretation: Normal Progress Note: Plan: - Insulin. - IV fluids Reevaluation Time: 23:55 Reassessment Condition: Improved Disposition Counseled Patient/Family Regarding: Studies Performed, Diagnosis, Need For Followup - Disposition Referrals: [facility] [Outside] [facility] [Outside] Disposition: HOME/ ROUTINE Disposition Time: 20:40 Condition: FAIR Additional Instructions: Please return if symptoms recur. Do check your sugar 4 times a day and keep a record Prescriptions: Ondansetron ODT [Zofran ODT] 1 odt PO BID PRN #6 odt PRN Reason: Nausea/Vomiting Instructions: Hyperglycemia, Adult (DC) Forms: [facility] (Austrian) - Clinical Impression Clinical Impression: Hyperglycemia - Scribe Statement The provider has reviewed the documentation as recorded by the Scribe Chacho Jaimes All medical record entries made by the Scribe were at my direction and personally dictated by me. I have reviewed the chart and agree that the record accurately reflects my personal performance of the history, physical exam, medical decision making, and the department course for this patient. I have also personally directed, reviewed, and agree with the discharge instructions and disposition.
[2018-04-25] MEDS ORDERED: Sodium Chloride 0.9% 1,000 ML ONE (20:46)
[2018-04-25 20:55] LABS: BASO % 0.9 % (0.0-2.0); EOS # 0.1 K/uL (0.0-0.7); EOS % 2.7 % (0.0-4.0); LYMPH # 1.7 K/uL (1.0-4.3); MEAN CORPUSCULAR HGB CONC 31.8 g/dL (33.0-37.0); MEAN PLATELET VOLUME 7.6 fL (7.2-11.7); MONO # 0.3 K/uL (0.0-0.8); MONO % 4.9 % (0.0-10.0); NEUT % 58.5 % (50.0-75.0); NRBC % 0.1 % (0.0-2.0); RBC 4.87 Mil/uL (3.80-5.20); RED CELL DISTRIBUTION WIDTH 13.6 % (11.5-14.5); WHITE BLOOD COUNT 5.2 K/uL (4.8-10.8)
[2018-04-25 20:56] LABS: HEMOGLOBIN 13.7 g/dL (11.0-16.0)
[2018-04-25 21:16] LABS: VENOUS BLOOD GAS PCO2 39 mmHg (40-60); VENOUS BLOOD GAS PO2 20 mm/Hg (30-55); VENOUS BLOOD PH 7.26 (7.32-7.43)
[2018-04-25 21:16] LABS: SQUAMOUS EPITHIAL 3 /hpf (0-5); URINE BACTERIA RARE (<OCC); URINE BILIRUBIN NEGATIVE (NEGATIVE); URINE BLOOD 2+ (NEGATIVE); URINE CLARITY Clear (Clear); URINE COLOR Straw (YELLOW); URINE GLUCOSE (UA) 3+ mg/dL (Normal); URINE LEUKOCYTE ESTERASE NEG Leu/uL (Negative); URINE PROTEIN NEGATIVE (NEGATIVE); URINE UROBILINOGEN NORMAL mg/dL (0.2-1.0)
[2018-04-25 21:19] LABS: ALB/GLOB RATIO 1.5 (1.0-2.1); ALBUMIN 4.9 g/dL (3.5-5.0); ALT/SGPT 17 U/L (9-52); AST/SGOT 36 U/L (14-36); BLOOD UREA NITROGEN 15 mg/dL (7-17); CALCIUM 9.6 mg/dl (8.6-10.4); GFR NON-AFRICAN AMERICAN > 60; LIPASE 96 U/L (23-300)
[2018-04-25 21:21] LABS: HCG,QUALITATIVE URINE NEGATIVE (NEGATIVE)
[2018-04-25] MEDS ORDERED: Sodium Chloride 0.9% 2,000 ML IV ONE (21:42)
[2018-04-25] MEDS ORDERED: (Novolin R) Insulin Human Regular 100 units/ml vial IVP ONE (21:43)
[2018-04-25] MEDS ORDERED: (Novolin R) Insulin Human Regular 100 units/ml vial ONE (22:11)
[2018-04-25 23:39] VITALS: BP 116/76; PULSE 86; RESP 16
[2018-04-25 23:58] VITALS: O2SAT 100
== END 2018-04-26 00:16 | disposition home or self-care (01) ==
LOC: C.ER 19:58
DX: E10.65 Type 1 diabetes mellitus with hyperglycemia (principal); Z79.4 Long term (current) use of insulin
CPT/HCPCS: 80053; 81001; 82009; 82803; 82948; 83690; 84703; 85025; 96361; 96374; 96375; 99285; J1885; J7030